=== PATIENT | female | born 1975 | race Caucasian/White ===

== ENCOUNTER → 2018-01-30 | Outpatient (CLI) | payer OTHER | LOC: BMCIMAGING 08:50 | PROVIDERS: ATTEND Internal Medicine | DX: J40 Bronchitis, not specified as acute or chronic (principal) ==

== ENCOUNTER → 2018-06-16 | Outpatient (CLI) | payer OTHER ==
[~2018-06-16] MED LIST: LIDOCAINE 1% 300 MG/30 ML SDV ONE
== END ==
LOC: FIMAGING 08:05
PROVIDERS: ATTEND Internal Medicine Endocrinology, Diabetes & Metabolism
PROC: 0G9K3ZZ Drainage of Thyroid Gland, Percutaneous Approach (ICD-10-PCS; principal; 2018-06-16)
DX: E04.2 Nontoxic multinodular goiter (principal)